=== PATIENT | female | born 1970 ===

== ENCOUNTER 2018-04-28 10:33 | Day surgery (SDC) | payer OTHER ==
[2018-04-28] MEDS ORDERED: MIDAZOLAM 1 MG/ML, 2ML ONE (11:36)
[2018-04-28] MEDS ORDERED: FENTANYL PF 250 MCG/5ML ONE (11:36)
[2018-04-28 11:47] LABS: HCG UR SG 1.022 (1.003-1.030)
[2018-04-28] MEDS ORDERED: BUPIVACAINE/PF-EPI 0.5% 1:200K ONE (12:08)
[2018-04-28] MEDS ORDERED: DIAZEPAM 5 MG/ML, 2ML IVPush PRN (13:30)
[2018-04-28] MEDS ORDERED: MEPERIDINE/PF 25MG/0.5ML IVPush PRN (13:30)
[2018-04-28] MEDS ORDERED: OXYcodone 5 MG/5 ML ORAL.SOL UDC PO PRN (13:30)
[2018-04-28] MEDS ORDERED: LABETALOL 5MG/ML, 20ML IV PRN (13:30)
[2018-04-28] MEDS ORDERED: ALBUTEROL SULFATE 2.5 MG/3 ML NPPB PRN (13:30)
[2018-04-28] MEDS ORDERED: hydrALAzine 20 MG/ML, 1ML IV PRN (13:30)
[2018-04-28] MEDS ORDERED: PROMETHAZINE 25 MG/ML, 1ML IV PRN (13:30)
[2018-04-28] MEDS ORDERED: ACETAMINOPHEN 325 MG TABLET PO PRN (13:30)
[2018-04-28] MEDS ORDERED: FENTANYL PF 100 MCG/2ML ONE (13:57)
[2018-04-28] MEDS ORDERED: OXYcodone 5 MG/5 ML ORAL.SOL UDC ONE (13:57)
[2018-04-28] MEDS ORDERED: ACETAMINOPHEN 650 MG/20.3 ML UDC ONE (13:57)
[2018-04-28] MEDS: FENTANYL PF 100 MCG/2ML IV PRN ×2 (14:05→14:20)
[2018-04-28] MEDS ORDERED: HYDROmorphone 1 MG/ML, 1ML ONE (14:27)
[2018-04-28] MEDS: HYDROmorphone 2 MG/ML, 1ML IVPush PRN ×2 (14:30→14:40)
[2018-04-28] MEDS ORDERED: KETOROLAC 30 MG/1 ML ONE (14:37)
[2018-04-28] MEDS ORDERED: KETOROLAC 30 MG/1 ML IV PRN (15:00)
[2018-04-28] MEDS ORDERED: PLEASE ENTER HEIGHT AND WEIGHT MC SCH (15:30)
== END 2018-04-28 17:05 | disposition home or self-care (01) ==
LOC: OUT 10:33
PROVIDERS: ATTEND Orthopaedic Surgery
DX: S82.61XA Displaced fracture of lateral malleolus of right fibula, initial encounter for closed fracture (principal); I10 Essential (primary) hypertension; E11.9 Type 2 diabetes mellitus without complications; Z79.899 Other long term (current) drug therapy; X58.XXXA Exposure to other specified factors, initial encounter; Y93.89 Activity, other specified; Y92.89 Other specified places as the place of occurrence of the external cause; Y99.8 Other external cause status; Z79.84 Long term (current) use of oral hypoglycemic drugs
CPT/HCPCS: 27792; 64445; 73600; 76000; 81025; 82962; 93005; C1713; J1170; J1885; J2250; J3010; J3360